=== PATIENT | male | born 1995 | race Caucasian/White ===

== ENCOUNTER 2017-08-20 21:29 | Emergency (ER) | payer BC ==
[~2017-08-20] VITALS: Ht 190.5 cm; Wt 96.8 kg
[~2017-08-20 21:29] MED LIST: CITA40TA12 PO; CNC/18 PO
[2017-08-20 21:31] VITALS: TEMP 36.6; Ht 190.5 cm; Wt 96.8 kg
--- NOTE | 2017-08-20 22:55 | DIAGNOSTIC IMAGING REPORT ---
L ANKLE MIN 3 VIEWS ROUTINE HISTORY: 22 years-old Male LEFT, EVAL PAIN acute left ankle pain status post trauma COMPARISON: None available TECHNIQUE: 3 views of the left ankle FINDINGS: There is a linear ill-defined lucency of the medial malleolus seen on both the AP and oblique images. Minimal dorsal spurring of the anterior process talus with adjacent punctate corticated bone fragment, possibly reflecting sequela of remote trauma. No acute displaced fracture or osteochondral defect. Mild soft tissue swelling about the ankle. IMPRESSION: Subtle linear lucency of the medial malleolus suggests acute nondisplaced fracture with mild circumferential ankle soft tissue swelling. The above report was generated using voice recognition software. It may contain grammatical, syntax or spelling errors. Electronically signed by: Sven Adam M.D. 08/20/2017 10:54 PM Dictated Date/Time: 08/20/2017 10:52 PM
--- NOTE | 2017-08-20 23:11 | EMERGENCY ROOM VISIT NOTE ---
ED Visit Note First contact with patient: 21:33 CHIEF COMPLAINT: Left ankle pain 2 days HISTORY OF PRESENT ILLNESS: Patient is an otherwise healthy 22-year-old male who presents emergency department for evaluation of medial left ankle pain. He states that his symptoms started out of the blue yesterday, without any inciting incident or injury. He did note that he rolled his ankle a couple of months ago while he was away at school, but did not seek any medical attention at that time. He was in [place] recently and was doing a lot of walking in shoes that did not have good arch support. He complains of pain over the medial malleolus that is worse with walking. He states that it is sharp and rates it at 9/10 with activity. Pain is worse with movement, particularly dorsiflexion. He denies noticing any swelling or bruising. He has not taken any medication for pain. He is able to bear weight but it is painful. REVIEW OF SYSTEMS: Review of systems as per HPI. All other systems reviewed were negative. At least 6 systems reviewed.. PMH: Electronic medical records are reviewed and summarized as above/below. See Problem List. SOCIAL HISTORY: Patient lives at home. College student. PHYSICAL EXAM: Vital Signs: Reviewed Nurse's notes. MENTAL STATUS: Alert, oriented, and cooperative. The left ankle is slightly swollen and markedly tender over the medial malleolus. Skin is is intact and there is no ligamentous instability. No pain over the 5th metatarsal or fibular head. Lisfranc joint is negative. There is no deformity. The foot and toes are warm and well-perfused. Sensation to pain and light touch is intact. EMERGENCY DEPARTMENT COURSE: X-ray of the ankle notes a lucency through the medial malleolus suspicious for an acute nondisplaced fracture. X-rays were reviewed with the patient and his mother. He was placed in a fracture boot, and instructed on a nonweightbearing gait using crutches. He is previously established with [facility], and was instructed to follow-up with them for further care and management of his injury prior to returning to [place] for school. Patient expressed understanding of this and was agreeable. He was discharged home with his mother in good condition. Medication reconciliation: I attest that I have personally reviewed the patient' s current medication list. Differential diagnosis include foot verses ankle sprain/fracture, contusion, dislocation. Blood pressure screening : Patient was found to have normal blood pressure on screening and does not require follow-up. L ANKLE MIN 3 VIEWS ROUTINE HISTORY: 22 years-old Male LEFT, EVAL PAIN acute left ankle pain status post trauma COMPARISON: None available TECHNIQUE: 3 views of the left ankle FINDINGS: There is a linear ill-defined lucency of the medial malleolus seen on both the AP and oblique images. Minimal dorsal spurring of the anterior process talus with adjacent punctate corticated bone fragment, possibly reflecting sequela of remote trauma. No acute displaced fracture or osteochondral defect. Mild soft tissue swelling about the ankle. IMPRESSION: Subtle linear lucency of the medial malleolus suggests acute nondisplaced fracture with mild circumferential ankle soft tissue swelling. Problem List Medical Problems: (1) ADHD (attention deficit hyperactivity disorder) Status: Chronic (2) Depression Status: Chronic (3) Epididymitis Status: Resolved (4) Testicular pain Status: Resolved Surgical Problems: (1) History of tonsillectomy Status: Resolved Current/Historical Medications Scheduled Citalopram Hydrobromide (Celexa), 40 MG PO DAILY Allergies Coded Allergies: No Known Allergies (Unverified , 08/20/17) Vital Signs Date Time Temp Pulse Resp B/P (MAP) Pulse Ox O2 Delivery O2 Flow Rate FiO2 08/20/17 23:29 75 96 08/20/17 21:31 36.6 69 18 98 Room Air Departure Information Impression Primary Impression: Fracture of medial malleolus of left tibia Referrals No Doctor, Assigned (PCP) Patient Instructions My [facility] Additional Instructions Ibuprofen(Motrin, Advil): may be used for fever or pain. Use 600mg every six hours as needed. Take with food. Avoid using more than 2400mg in a 24 hour period. Do not use 2400mg per day for more than three consecutive days without physician direction. Prolonged inappropriate use can lead to stomach upset or ulcers. This is available over the counter and typically comes in 200mg tablets. (AND/OR) Acetaminophen(Tylenol): may be used for fever or pain. Use 1000mg every eight hours as needed. Avoid using more than 3000mg in a 24 hour period. This is available over the counter. Ice compresses for 20 minutes at a time four times daily for 2-3 days. Use the walking boot and crutches as instructed. . Rest and elevate your injury as discussed. Continue current medications. Return to the ER immediately for any numbness, tingling, severe pain, extreme swelling in the extremity or as needed. Call [facility] at 8am on Wednesday morning to arrange follow up for your injury. Problem Qualifiers Primary Impression: Fracture of medial malleolus of left tibia Encounter type: initial encounter Fracture type: closed Fracture alignment : nondisplaced Qualified Codes: S82.55XA - Nondisplaced fracture of medial malleolus of left tibia, initial encounter for closed fracture
[2017-08-20 23:29] VITALS: PULSE 75; O2SAT 96
== END 2017-08-20 23:30 | disposition home or self-care (01) ==
LOC: C.EDB 21:30 → C.EDD 23:30
DX: S82.55XA Nondisplaced fracture of medial malleolus of left tibia, initial encounter for closed fracture (principal); X50.9XXA Other and unspecified overexertion or strenuous movements or postures, initial encounter; X58.XXXA Exposure to other specified factors, initial encounter; F90.9 Attention-deficit hyperactivity disorder, unspecified type; F32.9 Major depressive disorder, single episode, unspecified; Z79.899 Other long term (current) drug therapy

== ENCOUNTER 2018-11-13 16:34 | Inpatient (IN) ==
[2018-11-13] MEDS ORDERED: KETOROLAC TROMETHAMINE 15 MG/ML VIAL IV STA (16:45)
[2018-11-13] MEDS ORDERED: ONDANSETRON INJ 2 MG/ML 2 ML VIAL IV STA (16:45)
[2018-11-13] MEDS ORDERED: SODIUM CHLORIDE 0.9% 1000ML 1,000 ML IV ONE (16:45)
[2018-11-13 17:02] LABS: Basophils # (auto) 0.03 K/uL (0-0.2); Basophils % (auto) 0.4 %; Eosinophils # (auto) 0.14 K/uL (0-0.5); Hematocrit (blood only) 38.9 % (42-52); Hemoglobin 12.7 g/dL (14.0-18.0); Immature Granulocytes # (auto) 0.02 K/uL (0.00-0.02); Immature Granulocytes % (auto) 0.3 %; Mean Corpuscular Hgb Conc 32.6 g/dL (32-36); Mean Corpuscular Volume 86.3 fL (80-100); Mean Platelet Volume 9.7 fL (7.4-10.4); Monocytes # (auto) 0.74 K/uL (0.11-0.59); Monocytes % (auto) 10.7 %; Neutrophils # (auto) 3.96 K/uL (1.4-6.5); Neutrophils % (auto) 57.6 %; Platelet Count 189 K/uL (130-400); RDW Coefficient of Variation 13.2 % (11.5-14.5); RDW Standard Deviation 41.7 fL (36.4-46.3); Red Blood Count 4.51 M/uL (4.7-6.1); White Blood Count 6.89 K/uL (4.8-10.8)
[2018-11-13 18:28] LABS: Albumin Level 3.9 gm/dl (3.4-5.0); BUN Creatinine Ratio 16.9 (10-20); Bilirubin Direct 0.1 mg/dl (0-0.2); Calcium 8.7 mg/dl (8.5-10.1); Creatinine Clr Calc Pharmacy 123.6 ml/min; Est GFR (African American) 107.1; Est GFR (Non-African American) 92.4
[2018-11-13 18:31] LABS: Bilirubin,Total 0.4 mg/dl (0.2-1)
[2018-11-13] MEDS ORDERED: IOVERSOL 100ml IV PRN (18:59)
--- NOTE | 2018-11-13 19:11 | CT Scan Report ---
CT SCAN OF THE ABDOMEN AND PELVIS WITH IV CONTRAST CLINICAL HISTORY: Right lower quadrant abdominal pain. COMPARISON STUDY: No priors. TECHNIQUE: Following the IV administration of 95 cc of Optiray 320, CT scan of the abdomen and pelvi s is performed from the lung bases to the proximal femora. Images are reviewed in the axial, sagittal , and coronal planes. IV contrast was administered without complication. A dose lowering technique wa s utilized adhering to the principles of ALARA. CT DOSE: 607.89 mGy.cm FINDINGS: Lung bases: The heart is normal in size and without pericardial effusion. The lung bases are clear. Liver: The contrast-enhanced liver is normal in size, contour, and attenuation. There is no intrahepa tic biliary ductal dilatation. The hepatic veins and portal veins are patent. Gallbladder: Unremarkable. Spleen: Normal in size and attenuation. Pancreas: Unremarkable. Adrenal glands: Unremarkable. Kidneys: The contrast enhanced kidneys are normal in size and without hydronephrosis. The kidneys enh ance symmetrically. A subcentimeter cortical hypodensity in the right kidney likely represents a cyst but is too small for definitive characterization. Abdominal vasculature: The abdominal aorta is normal in course and caliber. Bowel: The small bowel and colon are normal in course and caliber. The majority of the appendix is we ll-visualized and normal. Trace fluid is identified around the appendiceal tip located below the righ t lobe of liver as seen on image #196. Peritoneum: There is no intraperitoneal free air or abdominal ascites. There is a small fat-containin g umbilical hernia. Lymphadenopathy: None. Pelvic viscera: The bladder, prostate, and seminal vesicles are normal as imaged. Skeletal structures: No lytic or blastic lesions are seen. IMPRESSION: 1. The majority appendix is well-visualized and normal. 2. There is trace fluid identified around the appendiceal tip which is located just below the right l obe of the liver. A mild tip appendicitis is not entirely excluded. If there strong clinical concern for acute appendicitis or the patient clinically worsens consider short-term follow-up. Electronically signed by: Tristan eDl Valle M.D. 11/13/2018 7:08 PM
[2018-11-13 19:23] LABS: Appearance Urine Clear (Clear); Bilirubin Urine Negative (Negative); Blood Urine Negative (Negative); Color Urine Yellow; Glucose Urine UA Negative (Negative); Ketones Urine Negative (Negative); Leukocyte Esterase Urine Negative (Negative); Nitrite Urine Negative (Negative); Protein Urine Negative (Negative); Specific Gravity Urine 1.038 (1.000-1.030); Urobilinogen Urine Negative (Negative)
--- NOTE | 2018-11-13 20:28 | Surgery Consultation ---
Date of Consultation November 13, 2018 Assessment & Plan (1) Acute abdominal pain: pt is a 23 year -old male who presents to ER with one day history acute abdominal pain, with nausea and vomiting, CT scan-IMPRESSION: 1. The majority appendix is well-visualized and normal. 2. There is trace fluid identified around the appendiceal tip which is located just below the right lobe of the liver. A mild tip appendicitis is not entirely excluded. If there strong clinical concern for acute appendicitis or the patient clinically worsens consider short-term follow-up. IMO: acute abdominal pain, possible early acute appendicitis Plan, I recommend to do laparoscopic appendectomy, possible open, D/W benefits, risks and alternatives of the surgery, the risks - infection, bleeding, abscess, bowel obstruction, , pt understood, he agrees with the surgery, I answered all questions, History of Present Illness History of Present Illness CC: abdominal pain HPI: pt is a 23 year-old male who presents to Er with one day history acute abdominal pain with nausea and one time vomiting, the pain is located at right side abdomen, pt denies diarrhea, no fever, no back pain, pt is health in junior past, pt had CT scan -IMPRESSION: 1. The majority appendix is well-visualized and normal. 2. There is trace fluid identified around the appendiceal tip which is located just below the right lobe of the liver. A mild tip appendicitis is not entirely excluded. If there strong clinical concern for acute appendicitis or the patient clinically worsens consider short-term follow-up. Allergies Allergy/AdvReac Type Severity Reaction Status Date / Time pollen extracts Allergy Intermediate ITCHY Verified 11/13/18 16:54 EYES, SNEEZING, CONGESTION Home Medications Home Medications Medication Instructions Recorded Confirmed Type isotretinoin [Myorisan] 60 mg PO QAM 11/13/18 11/13/18 History Patient History Medical History Epididymitis (Resolved) Testicular pain (Resolved) Fracture of medial malleolus of left tibia (Acute) Family History Other No pertinent family history in first degree relatives Social History Preferred Language: Kosovan Feels Safe at Home: Yes Smoking Status: Former smoker Review of Systems Constitutional: as per Subjective / HPI Ear, Nose, Mouth, Throat: as per Subjective / HPI Respiratory: as per Subjective / HPI Cardiovascular: as per Subjective / HPI Gastrointestinal: as per Subjective / HPI Genitourinary: + as per Subjective / HPI Musculoskeletal: as per Subjective / HPI Integumentary: as per Subjective / HPI Neurologic: as per Subjective / HPI Psychiatric: as per Subjective / HPI Endocrine: as per Subjective / HPI Hematologic / Lymphatic: as per Subjective / HPI Physical Exam Constitutional: WD/WN, vitals as above well developed and well nourished ENMT: external ear and nose normal, oropharynx normal Neck: trachea midline, no thyromegaly Respiratory: normal respiratory effort, lungs clear to auscultation normal respiratory effort Cardiovascular: RRR, no murmur, no edema Rate/Rhythm: regular rate and regular rhythm Heart Sounds: normal S1 and normal S2 Gastrointestinal (Abdomen): normal bowel sounds, soft, nontender, no hepatosplenomegaly Percussion/Palpation: + abdomen tender and abdomen soft mild tenderness at RLQ area, no rebound pain, BS + Musculoskeletal: no cyanosis or clubbing, extremities motor strength 5/5 Neurologic: patellar DTR's 2+ bilat, sensation intact Psychiatric: Orientation: alert and oriented x 3 Results & Data Vital Signs (Past 12 Hours) Vital Signs Temp Pulse Pulse Resp BP BP Pulse Ox 11/13/18 20:09 63 18 129/78 98 11/13/18 18:27 90 20 133/84 99 11/13/18 16:35 37.0 C 79 16 126/77 97 Laboratory Results Abnormal lab results 11/13/18 11/13/18 11/13/18 Range/Units 16:49 16:49 16:49 RBC 4.51 L (4.7-6.1) M/uL Hgb 12.7 L (14.0-18.0) g/dL Hct 38.9 L (42-52) % [place] # (Auto) 0.74 H (0.11-0.59) K/uL Chloride 108 H (98-107) mmol/L BUN 19 H (7-18) mg/dl Lipase 68 L (73-393) U/L Ur Specific [place] (1.000-1.030) 11/13/18 Range/Units 19:15 RBC (4.7-6.1) M/uL Hgb (14.0-18.0) g/dL Hct (42-52) % [place] # (Auto) (0.11-0.59) K/uL Chloride (98-107) mmol/L BUN (7-18) mg/dl Lipase (73-393) U/L Ur Specific [place] 1.038 H (1.000-1.030) Diagnostic Findings CT SCAN OF THE ABDOMEN AND PELVIS WITH IV CONTRAST CLINICAL HISTORY: Right lower quadrant abdominal pain. COMPARISON STUDY: No priors. TECHNIQUE: Following the IV administration of 95 cc of Optiray 320, CT scan of the abdomen and pelvis is performed from the lung bases to the proximal femora. Images are reviewed in the axial, sagittal, and coronal planes. IV contrast was administered without complication. A dose lowering technique was utilized adhering to the principles of ALARA. CT DOSE: 607.89 mGy.cm FINDINGS: Lung bases: The heart is normal in size and without pericardial effusion. The lung bases are clear. Liver: The contrast-enhanced liver is normal in size, contour, and attenuation. There is no intrahepatic biliary ductal dilatation. The hepatic veins and portal veins are patent. Gallbladder: Unremarkable. Spleen: Normal in size and attenuation. Pancreas: Unremarkable. Adrenal glands: Unremarkable. Kidneys: The contrast enhanced kidneys are normal in size and without hydronephrosis. The kidneys enhance symmetrically. A subcentimeter cortical hypodensity in the right kidney likely represents a cyst but is too small for definitive characterization. Abdominal vasculature: The abdominal aorta is normal in course and caliber. Bowel: The small bowel and colon are normal in course and caliber. The majority of the appendix is well-visualized and normal. Trace fluid is identified around the appendiceal tip located below the right lobe of liver as seen on image #[id number]. Peritoneum: There is no intraperitoneal free air or abdominal ascites. There is a small fat-containing umbilical hernia. Lymphadenopathy: None. Pelvic viscera: The bladder, prostate, and seminal vesicles are normal as imaged. Skeletal structures: No lytic or blastic lesions are seen.
--- NOTE | 2018-11-13 20:36 | History & Physical Bridge Note ---
Date of Service November 13, 2018 History & Physical Bridge Note I have examined the patient, reviewed the History & Physical and in the interval since the performance of the History & Physical I have noted the following changes of clinical significance: no changes noted
[2018-11-13] MEDS ORDERED: BUPIVACAINE 0.5 % 5 MG/1 ML MPF 30ML VIAL ONE (20:44)
[2018-11-13] MEDS ORDERED: BACITRACIN OINT 15 GM TUBE ONE (20:44)
[2018-11-13] MEDS ORDERED: LIDOCAINE HCL 1% 20 ML VIAL ONE (20:44)
[2018-11-13] MEDS ORDERED: cefOXitin 2,000 MG/60 ML BAG IV SCH (21:00)
[2018-11-13] MEDS ORDERED: LIDOCAINE HCL 2% 2 ML VIAL/AMP(20MG/ML) INFIL ONE (21:11)
[2018-11-13] MEDS ORDERED: MIDAZOLAM HCL 1 MG/ML 2ML VIAL ONE (21:11)
[2018-11-13] MEDS ORDERED: PROPOFOL IV EMULSION 10 MG/ML 20 ML VIAL IV ONE (21:11)
[2018-11-13] MEDS ORDERED: fentaNYL citrate 100 MCG/2 ML VIAL ONE ×4 (21:12→23:40)
[2018-11-13] MEDS ORDERED: SUCCINYLCHOLINE CHLORIDE 20 MG/ML 10 ML VIAL ONE (21:16)
--- NOTE | 2018-11-13 21:29 | Anesthesiology Consultation ---
Date of Service November 13, 2018 Assessment & Plan (1) Encounter for pre-operative examination: Chart Review Chart Review: Acceptable Risk for Surgery and Patient NOT seen in Pre Admission Testing Consults Requested none ASA [id number] Proposed Anesthesia Anesthesia Type: General Risk / Benefits Reviewed With: PT / POA / Parent / Guardian, Accepts Plan and I nformed Consent Obtained History Surgery Operation Date: 11/13/18 21:30 Proposed Procedures p Laparoscopic Appendectomy - Filiberto Juarez MD Height/Weight Height: 6 ft 3 in Weight: 98.9 kg Allergies Allergy/AdvReac Type Severity Reaction Status Date / Time pollen extracts Allergy Intermediate ITCHY Verified 11/13/18 16:54 EYES, SNEEZING, CONGESTION Medications Home Medications Medication Instructions Recorded Confirmed Last Taken isotretinoin [Myorisan] 60 mg PO QAM 11/13/18 11/13/18 11/13/18 Active Medications Generic Name Dose Route Start Last Admin Trade Name Freq PRN Reason Stop Dose Admin Ioversol 95 ml 11/13/18 18:59 11/13/18 18:59 Optiray 320 100ml IV 11/17/18 18:58 95 ml ONCE PRN Administration Interaction Checking NPO Date Last Intake of Fluids: 11/13/18 Time Last Intake of Fluids: 15:00 Date Last Intake of Solids: 11/13/18 Time Last Intake of Solids: 14:30 Past Medical History Medical History Epididymitis (Resolved) Testicular pain (Resolved) Fracture of medial malleolus of left tibia (Acute) Exercise / Class Metabolic Activity II 4-5 Yardwork/Stairs/Walk up hill Past Family History Family History Other No pertinent family history in first degree relatives Past Surgical History Surgical History History of hand surgery Left History of tonsillectomy History of wisdom tooth extraction Past Anesthesia History No Hx of Anesthesia Complications and No Family Hx of Anesthesia Complications (PONV in mom) History of PONV No Hx of PONV and No Hx of Motion Sickness Social History Smoking Status: Former smoker Do You Dip or Chew Tobacco: No Hx Alcohol Use: Yes Alcohol type: hard liquor alcohol intake frequency: a few times a week Alcohol Intake Frequency Comment: 2 to 3 Hx Substance Use: No Review of Systems Patient denies active symptoms of GERD. Physical Exam Vital Signs Last Vital Signs Temp 37.0 C 11/13/18 16:35 Pulse 63 11/13/18 20:09 Resp 18 11/13/18 20:09 BP 129/78 11/13/18 20:09 Pulse Ox 98 11/13/18 20:09 Constitutional not obese ENMT Mouth: no TMJ abnormality and oral opening not small Thyromental Distance: > or= 3.5 Finger Breadths Mallampati Class: I Neck normal visual inspection; neck extension not limited Respiratory normal respiratory effort Auscultation: lungs clear to auscultation bilaterally Cardiovascular Rate/Rhythm: regular rate and regular rhythm Heart Sounds: no murmur Neurologic moves all extremities Motor/Sensory: no sensory deficit Psychiatric Orientation: alert and oriented x 3 Testing Laboratory Results 11/13/18 16:49 11/13/18 16:49 Urine Color Yellow 11/13/18 19:15 Urine Appearance Clear (Clear) 11/13/18 19:15 Urine pH 7.0 (4.5-7.5) 11/13/18 19:15 Ur Specific [place] 1.038 (1.000-1.030) H 11/13/18 19:15 Urine Protein Negative (Negative) 11/13/18 19:15 Urine Glucose (UA) Negative (Negative) 11/13/18 19:15 Urine Ketones Negative (Negative) 11/13/18 19:15 Urine Nitrite Negative (Negative) 11/13/18 19:15 Ur Leukocyte Esterase Negative (Negative) 11/13/18 19:15
[2018-11-13] MEDS ORDERED: HYDROmorphone INJ 1 MG/ML SYRINGE IV PRN (21:41)
[2018-11-13] MEDS ORDERED: ATROPINE SULFATE 0.1 MG/ML 10ML SYR IV PRN (21:41)
[2018-11-13] MEDS ORDERED: PROMETHAZINE HCL 12.5 MG in SODIUM CHLORIDE 0.9% 50 ML IV PRN (21:41)
[2018-11-13] MEDS ORDERED: ONDANSETRON INJ 2 MG/ML 2 ML VIAL IV PRN (21:41)
[2018-11-13] MEDS ORDERED: ePHEDrine sulfate 50 MG/ML AMP IV PRN (21:41)
--- NOTE | 2018-11-13 21:45 | Emergency Department Note ---
Entered by Gopi Maguire acting as a scribe for Clifton Snell History of Present Illness General Chief complaint: Abdominal Pain Time Seen by Provider: 11/13/18 16:38 Source: patient History of Present Illness Provider complaint: Abdominal pain Onset (ago): day(s) 1 Location: abdomen and right Radiation: back Pain Consistency: + constant Maximum Pain Intensity: 7 Current Pain Intensity: 7 Relieved By: + none Exacerbated By: + none Associated symptoms: + nausea/vomiting The patient is a 23 year old male who presents to the Emergency Room with complaints of constant right lower quadrant abdominal pain that started yesterday and became worse throughout today. The patient rates the pain as a 7/10 and notes it radiates to his back. The patient reports that he has been nauseous and did vomit once since the onset of his symptoms. The patient denies any hematuria, hematemesis, or hematochezia as well as any testicular pain. The patient mentioned that he did drink alcohol yesterday but only had two shots of liquor. The patient denies any past abdominal surgeries. He notes he is not on any daily medications besides Accutane. Home Medications Home Medications Medication Instructions Recorded Confirmed Type isotretinoin [Myorisan] 60 mg PO QAM 11/13/18 11/13/18 History Allergies Allergy/AdvReac Type Severity Reaction Status Date / Time pollen extracts Allergy Intermediate ITCHY Verified 11/13/18 16:54 EYES, SNEEZING, CONGESTION Past Med/Surg History Medical History Epididymitis (Resolved) Testicular pain (Resolved) Fracture of medial malleolus of left tibia (Acute) Surgical History History of hand surgery Left History of tonsillectomy History of wisdom tooth extraction Family History Other No pertinent family history in first degree relatives Social History Preferred Language: Tajik Feels Safe at Home: Yes Smoking Status: Former smoker Do You Dip or Chew Tobacco: No Hx Alcohol Use: Yes Alcohol type: hard liquor Hx Substance Use: No Review of Systems See HPI for pertinent positives & negatives. and A total of 10 systems reviewed and were otherwise negative Physical Exam Vital Signs Vital Signs - 24 hr 11/13/18 16:35 11/13/18 18:27 11/13/18 20:09 Temperature 37.0 C Temperature Source Oral Sepsis Recent Fever Within 48 Hours No Sepsis New/Unexplained Change in Mental Status No Sepsis Action Taken by Nursing No Action Required Pulse Rate 79 Pulse Rate [Right Finger] 90 63 Respiratory Rate 16 20 18 Respiratory Effort / Characteristics Non-Labored Spontaneous Respiratory Depth Normal Respiratory Pattern Regular Blood Pressure 126/77 Blood Pressure [Right Arm] 133/84 129/78 Blood Pressure Mean 93 Blood Pressure Mean [Right Arm] 100 95 Blood Pressure Position Sitting Pulse Oximetry 97 99 98 Oxygen Delivery Method Room Air Room Air GENERAL: He is oriented to person, place, and time. He appears well-developed and well-nourished. He does not appear distressed. HENT: Exam performed. - Head: Normocephalic and atraumatic. - Right Ear: External ear normal. No mastoid tenderness. - Left Ear: External ear normal. No mastoid tenderness. - Mouth/Throat: The oropharynx is clear and moist. No trismus in the jaw. No dental abscesses or uvula swelling. No oropharyngeal exudate or tonsillar abscesses. EYES: Conjunctivae and EOM are normal. Pupils are equal, round, and reactive to light. Right eye exhibits no discharge. Left eye exhibits no discharge. No scleral icterus. NECK: Normal range of motion. Neck supple. No JVD present. No spinous process tenderness present. No carotid bruit present. No rigidity. No tracheal deviation and normal range of motion present. No Brudzinski's sign and no Kernig's sign noted. CV: Normal rate, regular rhythm, normal heart sounds and intact distal pulses. There is no peripheral edema. Palpable radial pulses bue. PULM/CHEST: Effort normal and breath sounds normal. No respiratory distress. No stridor. He has no wheezes. He has no rales. - Chest Wall: He exhibits no tenderness. ABD: The abdomen is soft. Bowel sounds are normal. He has no distension. No mass is present. Pain to palpation in the RLQ. There is no rebound, no guarding, no Fu's sign and no tenderness at McBurney's point. Rovsig negative. MUSC/SKEL: Normal range of motion. There is no peripheral edema, tenderness or deformity. LYMPH: No cervical adenopathy. NEURO: He is alert and oriented to person, place, and time. He has normal strength. No cranial nerve deficit or sensory deficit. Coordination and gait normal. GCS eye subscore is 4. GCS verbal subscore is 5. GCS motor subscore is 6. Cerebellar tests wnl. SKIN: Skin is warm and dry. He is not diaphoretic. PSYCH: He has a normal mood and affect. Behavior is normal. Judgment and thought content normal. Course 1640: Past medical records reviewed. The patient was evaluated in room A04B, and a complete history and physical examination were performed. 1920: I spoke to Dr. Juarez - General Surgery about the patient's case and he is going to come evaluate him. 1923: The patient's vital signs are stable. Repeat abdominal exam showed pain is still present in the RLQ and also now in the RUQ. Labs are WNL. The CT shows possible mild appendicitis at the tip of the appendix. I discussed the case with Dr. Juarez who said he will come down to evaluate the patient. 2034: After evaluating the patient, Dr. Juarez will be accepting the patient and taking him to the OR. Consultations Consultation #1: I spoke to Dr. Juarez - General Surgery about the patient's case and he is going to come evaluate him. Time: 19:21 Administered Medications Ioversol (Optiray 320 100ml) 95 ml IV ONCE PRN PRN Reason: Interaction Checking Stop: 11/17/18 18:58 Last Admin: 11/13/18 18:59 Dose: 95 ml Documented by: [id number] Discontinued Medications Sodium Chloride (Nss 1000ml) 1,000 mls @ 999 mls/hr IV .Q1H1M ONE Stop: 11/13/18 17:45 Last Infusion: 11/13/18 18:01 Dose: 0 mls/hr Documented by: [id number] Admin: 11/13/18 16:56 Dose: 999 mls/hr Documented by: [id number] Ketorolac Tromethamine (Toradol) 15 mg IV NOW STA Stop: 11/13/18 16:46 Last Admin: 11/13/18 16:56 Dose: 15 mg Documented by: [id number] Ondansetron HCl (Zofran) 4 mg IV NOW STA Stop: 11/13/18 16:46 Last Admin: 07/28/19 16:56 Dose: 4 mg Documented by: [id number] Medical Decision Making Medical Records Attestation: I reviewed the patient's medical records. Home Medications Current Medication List: was personally reviewed by me Laboratory Data Attestation: I reviewed the patient's lab results. Result diagrams: 11/13/18 16:49 11/13/18 16:49 Lab Results 11/13/18 11/13/18 11/13/18 Range/Units 16:49 16:49 16:49 WBC 6.89 (4.8-10.8) K/uL RBC 4.51 L (4.7-6.1) M/uL Hgb 12.7 L (14.0-18.0) g/dL Hct 38.9 L (42-52) % MCV 86.3 (80-100) fL MCH 28.2 (25-34) pg MCHC 32.6 (32-36) g/dL RDW Std Deviation 41.7 (36.4-46.3) fL RDW Coeff of Rachana 13.2 (11.5-14.5) % Plt Count 189 (130-400) K/uL MPV 9.7 (7.4-10.4) fL Immature Gran % (Auto) 0.3 % Neut % (Auto) 57.6 % Lymph % (Auto) 29.0 % Love % (Auto) 10.7 % Eos % (Auto) 2.0 % Baso % (Auto) 0.4 % Immature Gran # (Auto) 0.02 (0.00-0.02) K/uL Neut # (Auto) 3.96 (1.4-6.5) K/uL Lymph # (Auto) 2.00 (1.2-3.4) K/uL Love # (Auto) 0.74 H (0.11-0.59) K/uL Eos # (Auto) 0.14 (0-0.5) K/uL Baso # (Auto) 0.03 (0-0.2) K/uL Sodium 144 (136-145) mmol/L Potassium 4.0 (3.5-5.1) mmol/L Chloride 108 H (98-107) mmol/L Carbon Dioxide 26 (21-32) mmol/L Anion Gap 10.0 (3-11) BUN 19 H (7-18) mg/dl Creatinine 1.13 (0.6-1.4) mg/dl Est Cr Clr Drug Dosing 123.6 ml/min Est GFR ( Amer) 107.1 Est GFR (Non-Af Amer) 92.4 BUN/Creatinine Ratio 16.9 (10-20) Glucose 90 (70-99) mg/dl Calcium 8.7 (8.5-10.1) mg/dl Total Bilirubin 0.4 (0.2-1) mg/dl Direct Bilirubin 0.1 (0-0.2) mg/dl AST 19 (15-37) U/L ALT 20 (12-78) U/L Alkaline Phosphatase 79 (45-117) U/L Total Protein 7.0 (6.4-8.2) gm/dl Albumin 3.9 (3.4-5.0) gm/dl Lipase 68 L (73-393) U/L Urine Color Urine Appearance (Clear) Urine pH (4.5-7.5) Ur Specific Safford (1.000-1.030) Urine Protein (Negative) Urine Glucose (UA) (Negative) Urine Ketones (Negative) Urine Blood (Negative) Urine Nitrite (Negative) Urine Bilirubin (Negative) Urine Urobilinogen (Negative) Ur Leukocyte Esterase (Negative) 11/13/18 Range/Units 19:15 WBC (4.8-10.8) K/uL RBC (4.7-6.1) M/uL Hgb (14.0-18.0) g/dL Hct (42-52) % MCV (80-100) fL MCH (25-34) pg MCHC (32-36) g/dL RDW Std Deviation (36.4-46.3) fL RDW Coeff of Rachana (11.5-14.5) % Plt Count (130-400) K/uL MPV (7.4-10.4) fL Immature Gran % (Auto) % Neut % (Auto) % Lymph % (Auto) % Love % (Auto) % Eos % (Auto) % Baso % (Auto) % Immature Gran # (Auto) (0.00-0.02) K/uL Neut # (Auto) (1.4-6.5) K/uL Lymph # (Auto) (1.2-3.4) K/uL Love # (Auto) (0.11-0.59) K/uL Eos # (Auto) (0-0.5) K/uL Baso # (Auto) (0-0.2) K/uL Sodium (136-145) mmol/L Potassium (3.5-5.1) mmol/L Chloride (98-107) mmol/L Carbon Dioxide (21-32) mmol/L Anion Gap (3-11) BUN (7-18) mg/dl Creatinine (0.6-1.4) mg/dl Est Cr Clr Drug Dosing ml/min Est GFR ( Amer) Est GFR (Non-Af Amer) BUN/Creatinine Ratio (10-20) Glucose (70-99) mg/dl Calcium (8.5-10.1) mg/dl Total Bilirubin (0.2-1) mg/dl Direct Bilirubin (0-0.2) mg/dl AST (15-37) U/L ALT (12-78) U/L Alkaline Phosphatase (45-117) U/L Total Protein (6.4-8.2) gm/dl Albumin (3.4-5.0) gm/dl Lipase (73-393) U/L Urine Color Yellow Urine Appearance Clear (Clear) Urine pH 7.0 (4.5-7.5) Ur Specific Safford 1.038 H (1.000-1.030) Urine Protein Negative (Negative) Urine Glucose (UA) Negative (Negative) Urine Ketones Negative (Negative) Urine Blood Negative (Negative) Urine Nitrite Negative (Negative) Urine Bilirubin Negative (Negative) Urine Urobilinogen Negative (Negative) Ur Leukocyte Esterase Negative (Negative) Imaging Data Radiologist's Impression: Radiology results as stated below per my review and the radiologist's interpretation: CT SCAN OF THE ABDOMEN AND PELVIS WITH IV CONTRAST CLINICAL HISTORY: Right lower quadrant abdominal pain. COMPARISON STUDY: No priors. TECHNIQUE: Following the IV administration of 95 cc of Optiray 320, CT scan of the abdomen and pelvis is performed from the lung bases to the proximal femora. Images are reviewed in the axial, sagittal, and coronal planes. IV contrast was administered without complication. A dose lowering technique was utilized adhering to the principles of ALARA. CT DOSE: 607.89 mGy.cm FINDINGS: Lung bases: The heart is normal in size and without pericardial effusion. The meena ng bases are clear. Liver: The contrast-enhanced liver is normal in size, contour, and attenuation. There is no intrahepatic biliary ductal dilatation. The hepatic veins and portal veins are patent. Gallbladder: Unremarkable. Spleen: Normal in size and attenuation. Pancreas: Unremarkable. Adrenal glands: Unremarkable. Kidneys: The contrast enhanced kidneys are normal in size and without hydr onephrosis. The kidneys enhance symmetrically. A subcentimeter cortical hypodensity in the right kidney likely represents a cyst but is too small for definitive characterization. Abdominal vasculature: The abdominal aorta is normal in course and caliber. Bowel: The small bowel and colon are normal in course and caliber. The majority of the appendix is well-visualized and normal. Trace fluid is identified around the appendiceal tip located below the right lobe of liver as seen on image #[id number]. Peritoneum: There is no intraperitoneal free air or abdominal ascites. There is a small fat-containing umbilical hernia. Lymphadenopathy: None. Pelvic viscera: The bladder, prostate, and seminal vesicles are normal as imaged. Skeletal structures: No lytic or blastic lesions are seen. IMPRESSION: 1. The majority appendix is well-visualized and normal. 2. There is trace fluid identified around the appendiceal tip which is located just below the right lobe of the liver. A mild tip appendicitis is not entirely excluded. If there strong clinical concern for acute appendicitis or the patient clinically worsens consider short-term follow-up. Electronically signed by: Tristan Del Valle M.D. 11/13/2018 7:08 PM Blood Pressure Blood Pressure Findings: Normal blood pressure MDM Narrative 1640: Past medical records reviewed. The patient was evaluated in room A04B, and a complete history and physical examination were performed. 1920: I spoke to Dr. Juarez - General Surgery about the patient's case and he is going to come evaluate him. 1923: The patient's vital signs are stable. Repeat abdominal exam showed pain is still present in the RLQ and also now in the RUQ. Labs are WNL. The CT shows p ossible mild appendicitis at the tip of the appendix. I discussed the case with Dr. Juarez who said he will come down to evaluate the patient. 2034: After evaluating the patient, Dr. Juarez will be accepting the patient and taking him to the OR. Impression & Plan Acute appendicitis Discharge Plan Visit Data *Final* Discharge Date/Time: 11/13/18 21:05 Chief Complaint: Abdominal Pain ED Provider: Clifton Snell Discharge Problem: Acute appendicitis Patient Disposition: Admitted As Inpatient Discharge Instructions Interventions: ED Discharge Assessment Last Done: 11/13/18 21:05 Discharge Problem: Acute appendicitis Qualifiers: Acute appendicitis type: unspecified acute appendicitis type Qualified Code(s): K35.80 - Unspecified acute appendicitis The scribe's documentation has been prepared under my direction and personally reviewed by me in its entirety. I confirm that the note above accurately reflects all work, treatment, procedures, and medical decision making performed by me.
[2018-11-13] MEDS ORDERED: DEXAMETHASONE SOD INJ 4 MG/ML VIAL ONE (22:03)
[2018-11-13] MEDS ORDERED: ONDANSETRON INJ 2 MG/ML 2 ML VIAL ONE (22:04)
[2018-11-13] MEDS ORDERED: KETOROLAC 30 MG/ML VIAL ONE (22:18)
[2018-11-13] MEDS ORDERED: ROCURONIUM BROMIDE 10 MG/ML 5 ML VIAL ONE (22:18)
[2018-11-13] MEDS ORDERED: GLYCOPYRROLATE 0.2 MG/ML VIAL ONE ×2 (22:21→22:27)
[2018-11-13] MEDS ORDERED: NEOSTIGMINE METHYLSULFATE 5 MG/5 ML SYR ONE (22:21)
--- NOTE | 2018-11-13 22:31 | Post Operative Brief Note ---
Immediate Post Op Note v1 Date of Surgery November 13, 2018 Pre & Post Diagnosis Operation Date: 11/13/18 21:30 Pre-Op Diagnosis: Acute Appendicitis Post-Op Diagnosis: Acute Appendicitis Procedure Operation Date: 11/13/18 21:30 Actual Procedures p Laparoscopic Appendectomy(Not Applicable) - Filiberto Juarez MD Surgeon Filiberto Juarez MD Tube Buffer surgical assistant certified Estimated Blood Loss 5 Findings Consistent with Post-Op Diagnosis Fluids 800ml Specimens appendix Anesthesia Type General Regional Complications none Disposition Accompanied Patient To Recovery: Yes Disposition: Recovery Room Overlapping Procedure I was immediately available: during the entire case.
[2018-11-13] MEDS ORDERED: HYDROmorphone INJ 0.5 MG/0.5 ML SYR IV PRN (22:34)
[2018-11-13] MEDS ORDERED: SODIUM CHLORIDE 0.9% INJ 10 ML VIAL ONE (22:40)
[2018-11-13] MEDS ORDERED: LACTATED RINGER'S 1,000 ML IV SCH (22:45)
[2018-11-13] MEDS: fentaNYL citrate 100 MCG/2 ML VIAL IV PRN ×3 (22:52→23:41)
--- NOTE | 2018-11-13 23:17 | Anesthesiology Progress Note ---
Date of Service November 13, 2018 Anesthesia Post Procedure Vital Signs Vital Signs: Temp Pulse Pulse Pulse Resp BP BP 11/13/18 23:05 61 16 127/71 11/13/18 22:55 54 L 16 112/77 11/13/18 22:45 36.1 C L 81 18 152/88 H 11/13/18 20:09 63 18 11/13/18 18:27 90 20 11/13/18 16:35 37.0 C 79 16 126/77 BP Pulse Ox 11/13/18 23:05 99 11/13/18 22:55 99 11/13/18 22:45 99 11/13/18 20:09 129/78 98 11/13/18 18:27 133/84 99 11/13/18 16:35 97 Pain Intensity Right Lower Abdomen: Pain Intensity: 5 Transfer of Care Handoff Completed per policy Notes Mental Status: alert / awake / arousable and participated in evaluation Patient Amnestic to Procedure: Yes Nausea / Vomiting: adequately controlled Pain: adequately controlled Airway Patency, RR, SpO2: stable & adequate BP & HR: stable & adequate Hydration State: stable & adequate Anesthetic Complications: no major complications apparent and Pt Satisfied with anesthetic care
[2018-11-13] MEDS ORDERED: METOCLOPRAMIDE HCL INJ 5 MG/ML 2 ML VIAL IV ONE (23:43)
[2018-11-13] MEDS ORDERED: ACETAMINOPHEN 1,000 MG/100 ML VIAL IV ONE (23:43)
--- NOTE | 2018-11-13 23:48 | Operative Report ---
DATE OF OPERATION: 11/13/2018 DATE OF PROCEDURE: 11/13/2018 PREOPERATIVE DIAGNOSES: 1. Acute abdominal pain. 2. Acute appendicitis. POSTOPERATIVE DIAGNOSES: 1. Acute abdominal pain. 2. Acute appendicitis. OPERATION: Laparoscopic appendectomy. SURGEON: Filiberto Juarez MD ANESTHESIA: General. ESTIMATED BLOOD LOSS: About 5 mL. FINDINGS: Acute appendicitis. COMPLICATIONS: None. INDICATIONS FOR THE PROCEDURE: This is a 23-year-old gentleman who presented to ED with 1 day history of abdominal pain. The patient had a CT scan diagnosis of possible early acute appendicitis. I recommended to do a laparoscopic appendectomy, possible open. I did talk to the patient and patient's mom about the benefit and risk, alternate procedure. I indicated the risks may include but not limited such as bleeding, infection, abscess, injury to the bowel, bowel obstruction, even negative acute appendicitis due to appendectomy, even . The patient and patient's mom understand. The patient signed informed consent and I answered all questions. DETAILS OF PROCEDURE: We brought the patient to the OR, put the patient in the supine position. The patient received SCD on bilateral legs to prevent DVT. Also, patient received 2 g cefoxitin IV for prophylactic antibiotic. The patient received general anesthesia without difficulty. The abdomen was prepped and draped in routine sterile fashion. After timeout, I injected local anesthesia by using 1% lidocaine mixed with 0.5% Marcaine just above umbilicus, made a small incision just above umbilicus, opened fascia and opened peritoneum under direct vision, put a Joe trocar in, connected to CO2 to create pneumoperitoneum. Flow rate at 6 liter per minute. Pressure not more than 14 mmHg. Once we got a nice pneumoperitoneum, we put the camera in, looked around the abdomen showing no free fluid and normal finding on the small bowel and large bowel. At this moment, we put another two 5 mm trocar on the left lower quadrant where we mobilized the appendix and found the patient had inflammation on the tip of the appendix, confirmed diagnosis of acute appendicitis. Then, I used a Harmonic to take down appendiceal and rechecked no active bleeding. Then, I used a 45 mm Endo-KELSEY staple transection on the base of the appendix, rechecked the staple line intact. No leak and no active bleeding. Then, we removed the appendix through the catch bag, then we reinserted Joe trocar in, connected to CO2 to create pneumoperitoneum, again looked around the abdomen, no active bleeding, no leak from staple line. Then, we removed all trocar under direct vision. No active bleeding from the trocar sites. Pneumoperitoneum was released and closed the umbilical incision, fascial layer by using #1 Vicryl [id number] x2, closed subcutaneous layer by using 2-0 Vicryl interrupted, closed skin by using 4-0 Vicryl continuous running, closed another two 5 mm trocar site skin only by using 4-0 Vicryl. Then, we put the dressing on. The patient tolerated the procedure well. All instrument, needle and sponge count correct x2 at the end of the case. The patient transferred to recovery room in stable condition. After procedure, I did talk to the patient's mom about the OR finding and procedure we did and she understands. I attest to the content of the Intraoperative Record and any orders documented therein. Any exception s are noted below.
[2018-11-13] MEDS ORDERED: METOCLOPRAMIDE HCL INJ 5 MG/ML 2 ML VIAL ONE (23:50)
[2018-11-13] MEDS ORDERED: ACETAMINOPHEN 1000 MG/100 ML IV IV ONE (23:50)
[2018-11-14 01:10] LABS: Alanine Aminotransferase 17 U/L (12-78); Albumin Level 3.8 gm/dl (3.4-5.0); Aspartate Aminotransferase 16 U/L (15-37); BUN Creatinine Ratio 17.2 (10-20); Blood Urea Nitrogen 18 mg/dl (7-18); Calcium 8.6 mg/dl (8.5-10.1); Carbon Dioxide 25 mmol/L (21-32); Chloride 106 mmol/L (98-107); Creatinine Clr Calc Pharmacy 135.6 ml/min; Est GFR (African American) 119.8; Est GFR (Non-African American) 103.4; Glucose 91 mg/dl (70-99); Sodium 140 mmol/L (136-145)
[2018-11-14 01:15] LABS: Albumin Globulin Ratio 1.5 (0.9-2); Alkaline Phosphatase 78 U/L (45-117); Bilirubin,Total 0.6 mg/dl (0.2-1); Globulin 2.6 gm/dl (2.5-4.0); Total Protein 6.4 gm/dl (6.4-8.2); Troponin I < 0.015 ng/ml (0-0.045)
[2018-11-14] MEDS: OXYCODONE/ACETAMINOPHEN 5mg/325mg TAB PO PRN ×2 (04:22→08:46)
[2018-11-14 07:01] LABS: Basophils # (auto) 0.01 K/uL (0-0.2); Basophils % (auto) 0.1 %; Eosinophils # (auto) 0.01 K/uL (0-0.5); Eosinophils % (auto) 0.1 %; Hematocrit (blood only) 39.2 % (42-52); Hemoglobin 12.6 g/dL (14.0-18.0); Immature Granulocytes # (auto) 0.04 K/uL (0.00-0.02); Immature Granulocytes % (auto) 0.3 %; Lymphocytes # (auto) 1.16 K/uL (1.2-3.4); Lymphocytes % (auto) 8.3 %; Mean Corpuscular Hgb Conc 32.1 g/dL (32-36); Mean Corpuscular Volume 87.7 fL (80-100); Mean Platelet Volume 10.2 fL (7.4-10.4); Monocytes # (auto) 0.84 K/uL (0.11-0.59); Neutrophils # (auto) 11.84 K/uL (1.4-6.5); Neutrophils % (auto) 85.2 %; Platelet Count 194 K/uL (130-400); RDW Coefficient of Variation 13.1 % (11.5-14.5); RDW Standard Deviation 42.1 fL (36.4-46.3); Red Blood Count 4.47 M/uL (4.7-6.1)
--- NOTE | 2018-11-14 07:13 | Surgery Progress Note ---
Date of Service doing better, no significant abdominal pain, no nausea, no vomiting, no fever, November 14, 2018 Assessment & Plan (1) Acute abdominal pain: pt is a 23 year -old male who presents to ER with one day history acute abdominal pain, with nausea and vomiting, CT scan-IMPRESSION: 1. The majority appendix is well-visualized and normal. 2. There is trace fluid identified around the appendiceal tip which is located just below the right lobe of the liver. A mild tip appendicitis is not entirely excluded. If there strong clinical concern for acute appendicitis or the patient clinically worsens consider short-term follow-up. IMO: acute abdominal pain, possible early acute appendicitis Plan, I recommend to do laparoscopic appendectomy, possible open, D/W benefits, risks and alternatives of the surgery, the risks - infection, bleeding, abscess, bowel obstruction, , pt understood, he agrees with the surgery, I answered all questions, 11/14/2018 7:12am, pt wants to go home today, the post-op care instruction was given. F/U 1-2 weeks, Review of Systems Constitutional: as per Subjective / HPI Ear, Nose, Mouth, Throat: as per Subjective / HPI Respiratory: as per Subjective / HPI Cardiovascular: as per Subjective / HPI Gastrointestinal: as per Subjective / HPI Genitourinary: + as per Subjective / HPI Musculoskeletal: as per Subjective / HPI Integumentary: as per Subjective / HPI Neurologic: as per Subjective / HPI Psychiatric: as per Subjective / HPI Endocrine: as per Subjective / HPI Hematologic / Lymphatic: as per Subjective / HPI Physical Exam Constitutional: WD/WN, vitals as above well developed and well nourished ENMT: external ear and nose normal, oropharynx normal Neck: trachea midline, no thyromegaly Respiratory: normal respiratory effort, lungs clear to auscultation normal respiratory effort Cardiovascular: RRR, no murmur, no edema Rate/Rhythm: regular rate and regular rhythm Heart Sounds: normal S1 and normal S2 Gastrointestinal (Abdomen): normal bowel sounds, soft, nontender, no hepatosplenomegaly Percussion/Palpation: abdomen soft NT, ND, BS +, all incisions intact, no redness, no drainage Musculoskeletal: no cyanosis or clubbing, extremities motor strength 5/5 Neurologic: patellar DTR's 2+ bilat, sensation intact Psychiatric: Orientation: alert and oriented x 3 Results & Data Vital Signs (Past 12 Hours) Vital Signs Temp Pulse Pulse Pulse Resp BP BP 11/14/18 03:20 36.6 C 56 L 16 138/74 11/14/18 02:20 36.6 C 58 L 16 135/81 11/14/18 01:20 36.5 C 66 16 122/73 11/14/18 00:50 36.5 C 52 L 16 120/75 11/14/18 00:20 36.7 C 53 L 16 143/80 H 11/14/18 00:05 60 14 115/88 11/13/18 23:55 64 14 122/73 11/13/18 23:45 50 L 16 123/73 11/13/18 23:35 36.4 C L 57 L 16 130/74 11/13/18 23:15 36.4 C L 55 L 16 130/70 11/13/18 23:05 61 16 127/71 11/13/18 22:55 54 L 16 112/77 11/13/18 22:45 36.1 C L 81 18 152/88 H 11/13/18 20:09 63 18 129/78 Pulse Ox 11/14/18 03:20 97 11/14/18 02:20 97 11/14/18 01:20 95 11/14/18 00:50 97 11/14/18 00:20 97 11/14/18 00:05 98 11/13/18 23:55 98 11/13/18 23:45 95 11/13/18 23:35 99 11/13/18 23:15 98 11/13/18 23:05 99 11/13/18 22:55 99 11/13/18 22:45 99 11/13/18 20:09 98
--- NOTE | 2018-11-14 07:30 | XRay Report ---
XR chest 1V portable HISTORY: Postoperative chest pain COMPARISON: None. FINDINGS: The lungs are clear. Cardiac silhouette is normal in size. No pleural effusions. No pneumot horax. IMPRESSION: No acute process. Electronically signed by: Clarence Yarbrough M.D. 11/14/2018 7:28 AM
--- NOTE | 2018-11-14 08:02 | Anesthesiology Progress Note ---
Date of Service November 14, 2018 Anesthesia Post Procedure Vital Signs Vital Signs: Temp Pulse Pulse Pulse Pulse Resp BP 11/14/18 03:20 36.6 C 56 L 16 11/14/18 02:20 36.6 C 58 L 16 11/14/18 01:20 36.5 C 66 16 11/14/18 00:50 36.5 C 52 L 16 11/14/18 00:20 36.7 C 53 L 16 11/14/18 00:05 60 14 11/13/18 23:55 64 14 11/13/18 23:45 50 L 16 11/13/18 23:35 36.4 C L 57 L 16 11/13/18 23:15 36.4 C L 55 L 16 11/13/18 23:05 61 16 11/13/18 22:55 54 L 16 11/13/18 22:45 36.1 C L 81 18 11/13/18 20:09 63 18 11/13/18 18:27 90 20 11/13/18 16:35 37.0 C 79 16 126/77 BP BP Pulse Ox 11/14/18 03:20 138/74 97 11/14/18 02:20 135/81 97 11/14/18 01:20 122/73 95 11/14/18 00:50 120/75 97 11/14/18 00:20 143/80 H 97 11/14/18 00:05 115/88 98 11/13/18 23:55 122/73 98 11/13/18 23:45 123/73 95 11/13/18 23:35 130/74 99 11/13/18 23:15 130/70 98 11/13/18 23:05 127/71 99 11/13/18 22:55 112/77 99 11/13/18 22:45 152/88 H 99 11/13/18 20:09 129/78 98 11/13/18 18:27 133/84 99 11/13/18 16:35 97 Pain Intensity Right Lower Abdomen: Pain Intensity: 5 Medial Chest: Pain Intensity: 6 Notes Mental Status: alert / awake / arousable and participated in evaluation Patient Amnestic to Procedure: Yes Nausea / Vomiting: adequately controlled Pain: adequately controlled Airway Patency, RR, SpO2: stable & adequate BP & HR: stable & adequate Hydration State: stable & adequate Anesthetic Complications: no major complications apparent and Pt Satisfied with anesthetic care Notes: Patient states that the chest pain he was experiencing last night has improved. I let the patient know that the labs and CXR were all normal and reassured the patient that I suspect his symptoms were from the surgical procedure itself and that they should continue to improve. The patient states he has no additional quesitons.
--- NOTE | 2018-11-15 04:19 | Discharge Summary ---
DATE OF ADMISSION: 11/13/2018 DATE OF DISCHARGE: 11/14/2018 ADMITTING DIAGNOSES: Acute abdominal pain, acute appendicitis. DISCHARGE DIAGNOSES: Acute abdominal pain, acute appendicitis. OPERATION: Laparoscopic appendectomy. SURGEON: Filiberto Juarez MD DETAILS OF DISCHARGE SUMMARY: This is a 23-year-old gentleman who presented to ED with 1 day history of acute abdominal pain. The patient had a CT scan diagnosis possible early acute appendicitis. We took the patient to the OR. We did a laparoscopic appendectomy. During the OR, we found the patient had some inflammation on the tip of the appendix. We did removed the appendix. The patient tolerated the procedure well and patient denied any significant abdominal pain, no nausea, no vomiting overnight. PHYSICAL EXAMINATION: VITAL SIGNS: Temperature is 36.6, respiratory rate 16, heart rate 56, blood pressure 138/74, O2 saturation 97% on room air. GENERAL: The patient is alert, awake, oriented x3. HEENT: With normal limitation. NEUROLOGIC: Exam intact. NECK: No JVD. CHEST: Bilateral lung sounds clear. HEART: Normal S1, S2. No murmur. ABDOMEN: Soft, nondistended. No significant tenderness. All the incisions intact. No redness, no drainage. Bowel sounds positive. EXTREMITIES: No edema. PLAN: Patient wants to go home today. I gave the patient postop care instructions. I will follow up the patient in 1 or 2 weeks.
== END 2018-11-14 10:22 | disposition home or self-care (01) | DRG 343 ==
LOC: ED 16:34 → ASU 21:05 → 3W 22:33
DX: K35.80 Unspecified acute appendicitis